=== PATIENT | male | born 1960 | race Caucasian/White ===

== ENCOUNTER 2018-02-28 15:13 | Observation (INO) | payer OTHER, SELFPAY ==
[2018-02-28 15:14] VITALS: BP 155/82; PULSE 50; RESP 18; TEMP 36.8; O2SAT 97; BMI 28.1
--- NOTE | 2018-02-28 15:40 | EKG12_ITS ---
Test Reason : BACK PAIN Blood Pressure : / mmHG Vent. Rate : 052 BPM Atrial Rate : 052 BPM P-R Int : 144 ms QRS Dur : 086 ms QT Int : 418 ms P-R-T Axes : 057 039 060 degrees QTc Int : 388 ms Sinus bradycardia Otherwise normal ECG Confirmed by VALENTINA MARRERO, JOHN ([id number]), health editor SHEELA NUNES ([id number] on 03/03/2018 9:02:24 AM Referred By: Confirmed By:JOHN MONTGOMERY MD
--- NOTE | 2018-02-28 15:40 | CT_ITS ---
STUDY: CT ABDOMEN AND PELVIS WITH CONTRAST REASON FOR EXAM: Male, 58 years old. Back pain. History of bladder cancer. RADIATION DOSAGE (If Supplied By Facility): CTDIvol = ( 17.96 ) mGy, DLP = ( 1462.27 ) mGycm TECHNIQUE: Transaxial images were obtained from the dome of the diaphragm to the symphysis pubis without oral contrast. 100 ml of Isovue 370 contrast was administered. Sagittal and coronal images were reconstructed. Individualized dose optimization techniques were used for this CT. COMPARISON: None. FINDINGS: Minimal chronic versus posterior atelectatic changes of the right lung. Less than 2 mm pleural-based nodule of the left lower lobe, image 10 series 3. 3 mm pleural-based nodule of the left lower lobe, image 14 series 3. Small calcific or enhancing densities juxtapose the gallbladder wall. Small amount of pericholecystic fluid. Nondistended common bile duct. There are multiple benign calcified granulomata of the spleen. Normal pancreas. Normal bilateral adrenal glands. Normal right kidney. Normal left kidney. Food filled stomach. Normal small intestine. Minimal diverticulosis of the colon without evidence of acute diverticulitis The appendix is visualized and appears normal. Normal abdominal aorta. Normal inferior vena cava. Normal retroperitoneum. Normal urinary bladder. Minimal fatty umbilical hernia. Benign supra-acetabular fracture of the left hip. Otherwise normal osseous structures without osteolytic or blastic bone lesions. CT/Abdomen/Pelvis W IV Cont ONLY IMPRESSION: Negative for acute bowel related findings. Negative for obstruction, perforation or inflammatory bowel changes. Minimal diverticulosis without acute diverticulitis. Normal appendix is identified. Normal kidneys bilaterally without hydronephrosis or stones. Unremarkable noncontrast urinary bladder. Nondistended appearing gallbladder without wall thickening. There is evidence of gallstones or enhancing polyps. Small amount of pericholecystic fluid. Negative for biliary ductal dilatation. Essentially normal skeletal structures without osteolytic or blastic bone lesions. 2 mm and 3 mm noncalcified pleural-based nodules of the left lower lobe likely to be pulmonary lymph nodes. As the patient has history of cancer, follow-up may be in order in one year's time. Electronically Signed: Leslie Thompson MD at 17:27 EDT , Service support ,
--- NOTE | 2018-02-28 15:41 | CT_ITS ---
STUDY: CTA CHEST REASON FOR EXAM: Male, 58 years old. Back pain. History of bladder cancer. RADIATION DOSAGE (If Supplied By Facility): CTDIvol = ( 17.96 ) mGy, DLP = ( 1462.27 ) mGycm TECHNIQUE: The examination was performed with the intravenous administration of 100 ml of Isovue 370 contrast material. Post-processing of the angiographic images was performed, with multiplanar reformation and 3D reconstruction. Individualized dose optimization techniques were used for this CT. COMPARISON: None. FINDINGS: Normal enhancement of the main pulmonary artery and right and left pulmonary arteries. Normal enhancement of the bilateral peripheral pulmonary arteries. There is no demonstrated pulmonary embolism. Minimal plaque and elongation of the thoracic aorta without aneurysm. There is no demonstrated aortic dissection. Normal heart and pericardium. Negative for coronary calcification. Calcified left hilar and subcarinal lymph nodes. Normal hilar regions. Normal visualized trachea and bronchi. Minimal bibasilar atelectatic versus chronic changes. Otherwise negative for consolidation or focal substantial atelectasis. Negative for pleural effusion. Multiple calcified granuloma. 3 x 2 mm probably calcified nodule of the anterior right upper lobe, image 166 series 2. 3 mm noncalcified nodule of the right upper lobe, image 114 series 2. 4 mm noncalcified nodule of the anterior right upper lobe, image 113 series 2. 4 mm pleural-based noncalcified nodule of the lingula, image 90 series 2. 3 mm pleural-based nodule of the lateral left lower lobe, image 47 series 2. 2 x 1 mm pleural-based nodule of the posterior lateral left lower lobe, image 59 series 2. Normal chest wall structures. Normal osseous structures. CT/CTA Chest W/WO Contrast IMPRESSION: Negative for pulmonary embolus. Minimal atherosclerotic changes of the thoracic aorta without aneurysm or dissection. Normal cardiac size. Negative for pericardial effusion or coronary calcification. Minimal bibasilar atelectatic changes without other consolidation or pleural effusion. Calcified granuloma, calcified hilar and mediastinal lymph nodes. There are numerous noncalcified nodules as listed above. The larger nodules are 4 mm in size. Ordinarily, nodules of this size would require no specific follow-up; however, in light of the history of malignancy, twelve-month follow-up is recommended. Electronically Signed: Leslie Thompson MD at 18:19 EDT , Service support ,
--- NOTE | 2018-02-28 15:42 | ED.VISSUMM ---
- ER Visit Summary Date of Service: 02/28/18 Chief Complaint: Back pain History of Present Illness: The patient is a 58 M presenting with back pain which began around noon today. It gradually worsened. He states yesterday he did a lot of heavy labor and yard work. He has pain to his mid back and upper abdomen. He denies chest pain or shortness of breath. Denies dizziness or syncope. He has nausea with no vomiting. Denies other complaints. Physical Examination: Vitals are stable. Patient is afebrile. Alert no acute distress. HEENT exam is unremarkable. Neck is supple. Lungs are clear and equal bilaterally. Heart is regular rate and rhythm. Abdomen is soft right upper quadrant tenderness with no rebound or guarding Back: nontender Extremities are unremarkable. Skin is warm and dry. No focal neurologic deficit. Normal strength and sensation Remainder of exam is unremarkable. Emergency Department Course and Treatment: Patient is given IV fluids, morphine, Zofran. CTA chest negative for pulmonary embolus. Minimal atherosclerotic changes of the thoracic aorta without aneurysm or dissection. Normal cardiac size. Negative for pericardial effusion or coronary calcification. Minimal bibasilar atelectatic changes without other consolidation or pleural effusion. Calcified granuloma, calcified hilar and mediastinal lymph nodes. There are numerous noncalcified nodules as listed above. The larger nodules are 4 mm in size. Ordinarily, nodules of this size would require no specific follow-up; however, in light of the history of malignancy, twelve-month follow-up is recommended. CT abdomen negative for acute bowel related findings. Negative for obstruction, perforation or inflammatory bowel changes. Minimal diverticulosis without acute diverticulitis. Normal appendix is identified. Normal kidneys bilaterally without hydronephrosis or stones. Unremarkable noncontrast urinary bladder. Nondistended appearing gallbladder without wall thickening. Small amount of pericholecystic fluid. Negative for biliary ductal dilatation. Essentially normal skeletal structures without osteolytic or blastic bone lesions. 2 mm and 3 mm noncalcified pleural-based nodules of the left lower lobe likely to be pulmonary lymph nodes. As the patient has history of cancer, follow-up may be in order in one year's time. CBC normal except white count 11.5. Chemistry normal except for glucose 170. Liver lipase are normal. Urinalysis unremarkable. Troponin is negative. Gallbladder ultrasound fatty liver. Polyposis or adenomyomatosis of the gallbladder. Minimal pericholecystic fluid. Negative for stones. Nondistended common bile duct. Normal pancreas and right kidney. Findings were discussed with Dr. Lambert who evaluated the patient in the ED. Because of his white count of 11.5, pericholecystic fluid and right upper quadrant abdominal pain, patient will be admitted for acute cholecystitis. Disposition: Admission Impression: Acute cholecystitis This note was generated with Teik[employer] dictation software. It may contain incorrect words, spelling, and punctuation that were not noted in review of the chart prior to signing ED Disposition - Plan for ED Patient: Disposition: Acute Care Hospital [facility] Chief Complaint: Back
--- NOTE | 2018-02-28 15:47 | NURSING ---
NO OLD EKGS
[2018-02-28 15:57] LABS: Absolute Neutrophil Count 8.6 X10^3/uL (2.0-7.7); Basophil# 0.03 X10^3/uL; Basophil% 0.3 % (0-1); Eosinophil# 0.21 X10^3/uL; Eosinophils% 1.8 % (0-5); Hematocrit 41.7 % (40-54); Lymphocyte % 15.7 % (19-41); Mean Corp Hgb Conc 31.2 g/gl (32-36); Mean Corpuscular Hgb 26.4 pg (27.0-32.0); Mean Corpuscular Volume 84.6 fL (80-94); Mean Platelet Vol. 9.2 fl (6.2-12.0); Monocyte# 0.84 X10^3/uL; Monocyte% 7.3 % (0-10); Neutrophil # 8.57 X10^3/uL (2.7-7.7); Neutrophil % 74.7 % (47-70); Platelet Count 272 K/mm3 (150-450); RBC Distribution Width SD 43.2 fl (35.1-43.9); Red Blood Count 4.93 M/mm3 (4.6-6.2); White Blood Count 11.5 K/mm3 (4.4-11.0)
[2018-02-28] MEDS: 0.9% Normal Saline 1,000 ML 1000 ML IV (15:57)
[2018-02-28 15:58] LABS: POSITIVE COUNT NO; POSITIVE DIFFERENTIAL NO; POSITIVE MORPHOLOGY NO
[2018-02-28 16:23] LABS: AST(SGOT) 5 U/L (15-37); Alanine Aminotransfer ALT/SGPT 26 U/L (16-61); Albumin, Serum 3.5 g/dL (3.2-5.0); Alkaline Phosphatase 38 U/L (45-117); Anion Gap 6 (5-15); BUN 17 mg/dL (7-18); Chloride 105 mmol/L (98-107); Creatinine, Serum 0.74 mg/dL (0.70-1.30); EST Glomerular Filtration Rate 115 mL/min (>60); Est Glom Filt Rate - Afr Amer 139 mL/min (>60); Estimated Creatinine Clearance 103.99 ml/min; Globulin 3.1 g/dL (2.2-4.2); Glucose 170 mg/dL (74-106); Lipase 158 U/L (73-393); Potassium 3.9 mmol/L (3.5-5.1); Protein, Total 6.6 g/dL (6.4-8.2); Sodium Level 140 mmol/L (136-145)
--- NOTE | 2018-02-28 17:31 | US_ITS ---
STUDY: ABDOMINAL ULTRASOUND - RIGHT UPPER QUADRANT REASON FOR VISIT: Male, 58 years old. Abdominal pain TECHNIQUE: Ultrasound evaluation of the right upper quadrant was performed with real-time and static christina-scale imaging. TECHNICAL QUALITY: Adequate. COMPARISON: Abdomen and pelvic CT exam of February 28, 2018 FINDINGS: Liver: The liver measures 17 cm. There is increased echogenicity consistent with fatty infiltration. The bile ducts are within normal limits. There is hepatic color flow. The direction of portal flow is hepatopetal. There is no demonstrated mass lesion. Gallbladder: Normal distended gallbladder. The gallbladder wall thickness is variable. There are numerous nonmobile nonshadowing filling defects juxtapose the gallbladder wall throughout the gallbladder. There is a negative sonographic Srinivasan's sign. Slight pericholecystic fluid. There are no gallstones. Common Bile Duct (C.B.D.): The common bile duct measures 5 mm. Pancreas: Normal size of the head, body and tail of the pancreas. There is normal echogenicity of the pancreas. There is no demonstrated pancreatic mass or cyst. Right Kidney: Normal size of the right kidney. The right kidney measures 11.8 x 5.8 x 5.6 cm. Normal renal cortex. The right cortex measures 1.7 cm. There is no demonstrated renal mass or cyst. There is no right hydronephrosis. US/Gallbladder IMPRESSION: Fatty liver. Polyposis or adenomyomatosis of the gallbladder. Minimal pericholecystic fluid. Negative for stones. Nondistended common bile duct. Normal pancreas and right kidney. Electronically Signed: Leslie Thompson MD at 20:20 EDT , Service support ,
[2018-02-28 17:36] LABS: Bacteria 0 SEEN /hpf (None Seen); Mucous, Urine 0 SEEN /hpf (<or=2+); Squamous Epithelial Cells - UA 0 SEEN /hpf (0-5); White Blood Cells 0 SEEN /hpf (0-5)
[2018-02-28 17:37] LABS: Color, Urine Yellow (Yellow); Glucose, Dipstick 50 mg/dl (Normal); Ketone-Dipstick Negative (Negative); Leukocyte Esterase-Dipstick Negative /ul (Negative); Nitrite-Dipstick Negative (Negative); Occult Blood-Urine Negative /ul (Negative); Protein-Dipstick 15 mg/dl (Negative); Urine Bilirubin Dipstick Negative (Negative); Urine Clarity Clear (Clear); Urine Urobilinogen Normal (Normal)
[2018-02-28 17:52] LABS: Red Blood Cells-Urine 0-5 SEEN /hpf (0-5)
[2018-02-28 21:34] VITALS: BP 147/87; PULSE 60; RESP 15; O2SAT 95
--- NOTE | 2018-02-28 21:34 | PCM.HP.STD ---
Problem List (1) Acalculous cholecystitis Status: Acute (2) Adenomyoma of gallbladder Status: Acute History of Present Illness Date of Admission: 02/28/18 The patient is a 58 year old M who reports that he began having upper abdominal pain and back pain this afternoon. He did not have vomiting but he did have nausea. He also said he felt chills. He has never had issues like this before. He said he just did not feel well. He currently says the pain is much better. The pain was in the right upper quadrant and mid back. Past Medical History Allergies No Known Allergies Allergy (Verified 02/28/18 15:15) Home Medications: Ambulatory Orders Medication Instructions Recorded NK [NK] 02/28/18 Surgical History: - - Transurethral bladder resection for bladder cancer Lives: Spouse/ Significant Other Smoking Status: Never smoker Alcohol: None Drugs: None - *Family History Maternal History Items: No pertinent history Review of Systems Constitutional: Reports: Anorexia, Chills. Denies: Fever HEENT: Denies: Difficulty Swallowing Cardiovascular: Denies: Chest Pain Respiratory: Denies: Cough, Shortness of Breath Gastrointestinal: Reports: Abdominal Pain, Nausea. Denies: Constipation, Diarrhea, Hematemesis, Vomiting Genitourinary: Denies: Dysuria Musculoskeletal: Reports: Back Pain Skin: Denies: Dryness, Jaundice Neurological: Denies: Balance problems Endocrine: Denies: Change in Body Habitus Hematologic/ Lymphatic: Denies: Adenopathy, Anemia VTE Information - Inpt Only VTE Present on Admission: No VTE Mechan Device Prophylaxis: SCD's Patient Problems: Active and Suspected Problems Acalculous cholecystitis (Acute) Adenomyoma of gallbladder (Acute) - Physical Exam General: Alert, Oriented x3, Cooperative, No apparent distress HEENT: Atraumatic, PERRLA, EOMI, Normocephalic Oral: Moist Mucosa Neck: No JVD Lungs: Normal air movement Cardiovascular: Regular rate Abdomen: Soft, Non Tender, Non-Distended Extremities: No clubbing Skin: No rashes Musculoskeletal: No Tenderness to Palpation of Joints or Extremities Neurological: Cranial nerves II-XII grossly intact Psych/Mental Status: Normal Affect Vital Signs Temp Pulse Resp BP Pulse Ox 98.3 F 60 15 147/87 H 95 02/28/18 15:14 02/28/18 21:34 02/28/18 21:34 02/28/18 21:34 02/28/18 21:34 Oxygen Delivery Method Room Air Weight: 185 lb Body Mass Index (BMI) 28.1 Laboratory Tests Past 24 Hrs 02/28/18 02/28/18 02/28/18 15:50 15:50 17:25 WBC 11.5 H RBC 4.93 Hgb 13.0 Hct 41.7 MCV 84.6 MCH 26.4 L MCHC 31.2 L RDW 14.0 RDW Differential 43.2 Plt Count 272 MPV 9.2 Immature Gran % (Auto) 0.200 Neut % (Auto) 74.7 H Lymph % (Auto) 15.7 L [place] % (Auto) 7.3 Eos % (Auto) 1.8 Baso % (Auto) 0.3 Absolute Neuts (auto) 8.6 H Absolute Lymphs (auto) 1.80 Total Counted Not Reportable Sodium 140 Potassium 3.9 Chloride 105 Carbon Dioxide 29.0 Anion Gap 6 BUN 17 Creatinine 0.74 Estim Creat Clear Calc 103.99 Est GFR (MDRD) Af Amer 139 Est GFR (MDRD) Non-Af 115 BUN/Creatinine Ratio 23.0 H Glucose 170 H Calcium 8.0 L Total Bilirubin 0.30 Direct Bilirubin 0.10 AST 5 L ALT 26 Alkaline Phosphatase 38 L Troponin I < 0.015 Total Protein 6.6 Albumin 3.5 Globulin 3.1 Lipase 158 Urine Color Yellow Urine Clarity Clear Urine pH 7.0 Ur Specific [place] 1.010 Urine Protein 15 H Urine Glucose (UA) 50 H Urine Ketones Negative Urine Occult Blood Negative Urine Nitrite Negative Urine Bilirubin Negative Urine Urobilinogen Normal Ur Leukocyte Esterase Negative Urine RBC 0-5 SEEN Urine WBC 0 SEEN Ur Squamous Epith Cells 0 SEEN Urine Bacteria 0 SEEN Urine Mucus 0 SEEN Clinical Impression(s) from Imaging Studies Abdomen/Pelvis CT 02/28/18 15:40 IMPRESSION: Negative for acute bowel related findings. Negative for obstruction, perforation or inflammatory bowel changes. Minimal diverticulosis without acute diverticulitis. Normal appendix is identified. Normal kidneys bilaterally without hydronephrosis or stones. Unremarkable noncontrast urinary bladder. Nondistended appearing gallbladder without wall thickening. There is evidence of gallstones or enhancing polyps. Small amount of pericholecystic fluid. Negative for biliary ductal dilatation. Essentially normal skeletal structures without osteolytic or blastic bone lesions. 2 mm and 3 mm noncalcified pleural-based nodules of the left lower lobe likely to be pulmonary lymph nodes. As the patient has history of cancer, follow-up may be in order in one year's time. Electronically Signed: Leslie Thompson MD at 17:27 EDT , Service support , Chest CTA 02/28/18 15:41 IMPRESSION: Negative for pulmonary embolus. Minimal atherosclerotic changes of the thoracic aorta without aneurysm or dissection. Normal cardiac size. Negative for pericardial effusion or coronary calcification. Minimal bibasilar atelectatic changes without other consolidation or pleural effusion. Calcified granuloma, calcified hilar and mediastinal lymph nodes. There are numerous noncalcified nodules as listed above. The larger nodules are 4 mm in size. Ordinarily, nodules of this size would require no specific follow-up; however, in light of the history of malignancy, twelve-month follow-up is recommended. Electronically Signed: Leslie Thompson MD at 18:19 EDT , Service support , Gallbladder Ultrasound 02/28/18 17:31 IMPRESSION: Fatty liver. Polyposis or adenomyomatosis of the gallbladder. Minimal pericholecystic fluid. Negative for stones. Nondistended common bile duct. Normal pancreas and right kidney. Electronically Signed: Leslie Thompson MD at 20:20 EDT , Service support , Assessment/Plan All Active Problems Acalculous cholecystitis (Acute) Adenomyoma of gallbladder (Acute) 58-year-old male with possible acute cholecystitis 1. I reviewed the patient's CT scan as well as ultrasound. The patient has possible adenomyomatosis of the gallbladder. The patient has several polypoid filling defects in the gallbladder lumen which are fixed to the gallbladder wall. The patient also has thickening of the gallbladder wall with pericholecystic fluid. Patient also has an elevated white count with left shift. The patient also had pericholecystic fluid on the CT scan. Given all these things I am suspicious that the patient is having acalculous cholecystitis due to the adenomyomatosis of the gallbladder. 2. The patient is very hesitant about having any surgery. I did recommend that he have a cholecystectomy due to these polyps of the gallbladder especially in light of the acute nature of his symptoms. I believe he has a calculus cholecystitis. I informed him that his cholecystitis would likely improve with only antibiotics but I would still recommend elective cholecystectomy due to the multiple polyps and the fact that it is symptomatic. I also explained that his acute cholecystitis may return at a later date if he did not have his gallbladder removed. The patient was also hesitant about being admitted but I strongly encouraged him to be observed and rechecked in the morning. I did offer him a HIDA scan in the morning if he would like and if the HIDA was negative he could go home on oral antibiotics and return if he elected for elective gallbladder removal. 3. At this time I will admit him and keep him n.p.o. and start him on antibiotics. I will recheck CBC in the morning and check physical exam. At this time he is having no upper abdominal pain so I believe the gallbladder is draining but it could also be the fact that he has not eaten in over 8 hours. 4. I discussed the procedure in detail with the patient. I discussed the risks, benefits, and alternatives of the procedure. I discussed the risks including but not limited to bleeding, infection, injury to surrounding organs such as the liver, bile duct, bowels. I did discuss the possibility of having to convert to an open procedure as well as the possibility that if any injuries occurred this may necessitate further surgery at a tertiary care center. Israel Lambert MD Pager: [facility] [address] [place] [address] [address] [place] [address] Office:
--- NOTE | 2018-02-28 21:40 | HP.PCM_ITS ---
Problem List (1) Acalculous cholecystitis Status: Acute (2) Adenomyoma of gallbladder Status: Acute History of Present Illness Date of Admission: 02/28/18 The patient is a 58 year old M who reports that he began having upper abdominal pain and back pain this afternoon. He did not have vomiting but he did have nausea. He also said he felt chills. He has never had issues like this before. He said he just did not feel well. He currently says the pain is much better. The pain was in the right upper quadrant and mid back. Past Medical History Allergies No Known Allergies Allergy (Verified 02/28/18 15:15) Home Medications: Ambulatory Orders Medication Instructions Recorded NK [NK] 02/28/18 Surgical History: - - Transurethral bladder resection for bladder cancer Lives: Spouse/ Significant Other Smoking Status: Never smoker Alcohol: None Drugs: None - *Family History Maternal History Items: No pertinent history Review of Systems Constitutional: Reports: Anorexia, Chills. Denies: Fever HEENT: Denies: Difficulty Swallowing Cardiovascular: Denies: Chest Pain Respiratory: Denies: Cough, Shortness of Breath Gastrointestinal: Reports: Abdominal Pain, Nausea. Denies: Constipation, Diarrhea, Hematemesis, Vomiting Genitourinary: Denies: Dysuria Musculoskeletal: Reports: Back Pain Skin: Denies: Dryness, Jaundice Neurological: Denies: Balance problems Endocrine: Denies: Change in Body Habitus Hematologic/ Lymphatic: Denies: Adenopathy, Anemia VTE Information - Inpt Only VTE Present on Admission: No VTE Mechan Device Prophylaxis: SCD's Patient Problems: Active and Suspected Problems Acalculous cholecystitis (Acute) Adenomyoma of gallbladder (Acute) - Physical Exam General: Alert, Oriented x3, Cooperative, No apparent distress HEENT: Atraumatic, PERRLA, EOMI, Normocephalic Oral: Moist Mucosa Neck: No JVD Lungs: Normal air movement Cardiovascular: Regular rate Abdomen: Soft, Non Tender, Non-Distended Extremities: No clubbing Skin: No rashes Musculoskeletal: No Tenderness to Palpation of Joints or Extremities Neurological: Cranial nerves II-XII grossly intact Psych/Mental Status: Normal Affect Vital Signs Temp Pulse Resp BP Pulse Ox 98.3 F 60 15 147/87 H 95 02/28/18 15:14 02/28/18 21:34 02/28/18 21:34 02/28/18 21:34 02/28/18 21:34 Oxygen Delivery Method Room Air Weight: 185 lb Body Mass Index (BMI) 28.1 Laboratory Tests Past 24 Hrs 02/28/18 02/28/18 02/28/18 15:50 15:50 17:25 WBC 11.5 H RBC 4.93 Hgb 13.0 Hct 41.7 MCV 84.6 MCH 26.4 L MCHC 31.2 L RDW 14.0 RDW Differential 43.2 Plt Count 272 MPV 9.2 Immature Gran % (Auto) 0.200 Neut % (Auto) 74.7 H Lymph % (Auto) 15.7 L [place] % (Auto) 7.3 Eos % (Auto) 1.8 Baso % (Auto) 0.3 Absolute Neuts (auto) 8.6 H Absolute Lymphs (auto) 1.80 Total Counted Not Reportable Sodium 140 Potassium 3.9 Chloride 105 Carbon Dioxide 29.0 Anion Gap 6 BUN 17 Creatinine 0.74 Estim Creat Clear Calc 103.99 Est GFR (MDRD) Af Amer 139 Est GFR (MDRD) Non-Af 115 BUN/Creatinine Ratio 23.0 H Glucose 170 H Calcium 8.0 L Total Bilirubin 0.30 Direct Bilirubin 0.10 AST 5 L ALT 26 Alkaline Phosphatase 38 L Troponin I < 0.015 Total Protein 6.6 Albumin 3.5 Globulin 3.1 Lipase 158 Urine Color Yellow Urine Clarity Clear Urine pH 7.0 Ur Specific [place] 1.010 Urine Protein 15 H Urine Glucose (UA) 50 H Urine Ketones Negative Urine Occult Blood Negative Urine Nitrite Negative Urine Bilirubin Negative Urine Urobilinogen Normal Ur Leukocyte Esterase Negative Urine RBC 0-5 SEEN Urine WBC 0 SEEN Ur Squamous Epith Cells 0 SEEN Urine Bacteria 0 SEEN Urine Mucus 0 SEEN Clinical Impression(s) from Imaging Studies Abdomen/Pelvis CT 02/28/18 15:40 IMPRESSION: Negative for acute bowel related findings. Negative for obstruction, perforation or inflammatory bowel changes. Minimal diverticulosis without acute diverticulitis. Normal appendix is identified. Normal kidneys bilaterally without hydronephrosis or stones. Unremarkable noncontrast urinary bladder. Nondistended appearing gallbladder without wall thickening. There is evidence of gallstones or enhancing polyps. Small amount of pericholecystic fluid. Negative for biliary ductal dilatation. Essentially normal skeletal structures without osteolytic or blastic bone lesions. 2 mm and 3 mm noncalcified pleural-based nodules of the left lower lobe likely to be pulmonary lymph nodes. As the patient has history of cancer, follow-up may be in order in one year's time. Electronically Signed: Leslie Thompson MD at 17:27 EDT , Service support , Chest CTA 02/28/18 15:41 IMPRESSION: Negative for pulmonary embolus. Minimal atherosclerotic changes of the thoracic aorta without aneurysm or dissection. Normal cardiac size. Negative for pericardial effusion or coronary calcification. Minimal bibasilar atelectatic changes without other consolidation or pleural effusion. Calcified granuloma, calcified hilar and mediastinal lymph nodes. There are numerous noncalcified nodules as listed above. The larger nodules are 4 mm in size. Ordinarily, nodules of this size would require no specific follow-up; however, in light of the history of malignancy, twelve-month follow-up is recommended. Electronically Signed: Leslie Thompson MD at 18:19 EDT , Service support , Gallbladder Ultrasound 02/28/18 17:31 IMPRESSION: Fatty liver. Polyposis or adenomyomatosis of the gallbladder. Minimal pericholecystic fluid. Negative for stones. Nondistended common bile duct. Normal pancreas and right kidney. Electronically Signed: Leslie Thompson MD at 20:20 EDT , Service support , Assessment/Plan All Active Problems Acalculous cholecystitis (Acute) Adenomyoma of gallbladder (Acute) 58-year-old male with possible acute cholecystitis 1. I reviewed the patient's CT scan as well as ultrasound. The patient has possible adenomyomatosis of the gallbladder. The patient has several polypoid filling defects in the gallbladder lumen which are fixed to the gallbladder wall. The patient also has thickening of the gallbladder wall with pericholecystic fluid. Patient also has an elevated white count with left shift. The patient also had pericholecystic fluid on the CT scan. Given all these things I am suspicious that the patient is having acalculous cholecystitis due to the adenomyomatosis of the gallbladder. 2. The patient is very hesitant about having any surgery. I did recommend that he have a cholecystectomy due to these polyps of the gallbladder especially in light of the acute nature of his symptoms. I believe he has a calculus cholecystitis. I informed him that his cholecystitis would likely improve with only antibiotics but I would still recommend elective cholecystectomy due to the multiple polyps and the fact that it is symptomatic. I also explained that his acute cholecystitis may return at a later date if he did not have his gallbladder removed. The patient was also hesitant about being admitted but I strongly encouraged him to be observed and rechecked in the morning. I did offer him a HIDA scan in the morning if he would like and if the HIDA was negative he could go home on oral antibiotics and return if he elected for elective gallbladder removal. 3. At this time I will admit him and keep him n.p.o. and start him on antibiotics. I will recheck CBC in the morning and check physical exam. At this time he is having no upper abdominal pain so I believe the gallbladder is draining but it could also be the fact that he has not eaten in over 8 hours. 4. I discussed the procedure in detail with the patient. I discussed the risks , benefits, and alternatives of the procedure. I discussed the risks including but not limited to bleeding, infection, injury to surrounding organs such as the liver, bile duct, bowels. I did discuss the possibility of having to convert to an open procedure as well as the possibility that if any injuries occurred this may necessitate further surgery at a tertiary care center. Israel Lambert MD Pager: [facility] [address] [place] [address] [address] [place] [address] Office:
[2018-02-28 22:42] VITALS: BMI 28.3
[2018-02-28 22:43] VITALS: BP 130/66; PULSE 57; RESP 16; TEMP 37.1; O2SAT 97
[2018-02-28 22:53] VITALS: BMI 28.4
[2018-02-28 23:03] VITALS: BMI 28.3
[2018-02-28] MEDS: 0.9% Normal Saline 1,000 ML 100 ML IV (23:17)
[2018-03-01] VITALS (9 sets, daily range): BP systolic 99–139; BP diastolic 55–96; PULSE 53–67; RESP 16–18; TEMP 36.4–37.3; O2SAT 94–100; BMI 28.3
[2018-03-01 06:24] LABS: Absolute Lymphocyte Count 2.02 X10^3/ul (0.83-4.51); Absolute Neutrophil Count 8.5 X10^3/uL (2.0-7.7); Basophil# 0.05 X10^3/uL; Basophil% 0.4 % (0-1); Eosinophil# 0.25 X10^3/uL; Eosinophils% 2.1 % (0-5); Hematocrit 39.4 % (40-54); Hemoglobin 12.8 g/dl (13.0-16.5); Lymphocyte # 2.02 X10^3/ul (4.0); Lymphocyte % 16.9 % (19-41); Mean Corp Hgb Conc 32.5 g/gl (32-36); Mean Corpuscular Hgb 27.3 pg (27.0-32.0); Mean Platelet Vol. 9.8 fl (6.2-12.0); Monocyte# 1.07 X10^3/uL; Neutrophil # 8.53 X10^3/uL (2.7-7.7); Neutrophil % 71.3 % (47-70); Platelet Count 288 K/mm3 (150-450); RBC Distribution Width SD 42.8 fl (35.1-43.9); Red Blood Count 4.69 M/mm3 (4.6-6.2)
[2018-03-01 06:35] LABS: POSITIVE COUNT NO; POSITIVE DIFFERENTIAL NO; POSITIVE MORPHOLOGY NO
[2018-03-01 06:36] LABS: Anion Gap 8 (5-15); BUN 9 mg/dL (7-18); BUN/Creat Ratio 12.2 RATIO (10-20); Calcium,Total 7.9 mg/dL (8.5-10.1); Chloride 110 mmol/L (98-107); Creatinine, Serum 0.74 mg/dL (0.70-1.30); EST Glomerular Filtration Rate 116 mL/min (>60); Est Glom Filt Rate - Afr Amer 140 mL/min (>60); Estimated Creatinine Clearance 103.99 ml/min; Glucose 104 mg/dL (74-106); Potassium 3.7 mmol/L (3.5-5.1); Sodium Level 144 mmol/L (136-145)
--- NOTE | 2018-03-01 08:09 | PCM.PN.SRG ---
Patient Problems: Active and Suspected Problems Acalculous cholecystitis (Acute) Adenomyoma of gallbladder (Acute) Subjective: Patient continues to have abdominal pain and back pain this morning. - Physical Exam Lungs: Normal air movement Cardiovascular: Regular rate, Regular Rhythm Abdomen: Soft, Non-Distended, Tender - Tender in the right upper quadrant with no guarding Vital Signs Temp Pulse Resp BP Pulse Ox 98.2 F 60 16 128/72 H 94 03/01/18 07:58 03/01/18 07:58 03/01/18 07:58 03/01/18 07:58 03/01/18 07:58 Oxygen Delivery Method Room Air Weight: 186 lb 8.177 oz Body Mass Index (BMI) 28.3 Intake and Output for Last 24 Hours 02/27/18 02/28/18 03/01/18 23:59 23:59 23:59 Intake Total 334 / 334 Balance 334 / 334 Laboratory Tests Past 24 Hrs 03/01/18 03/01/18 05:52 05:52 WBC 12.0 H RBC 4.69 Hgb 12.8 L Hct 39.4 L MCV 84.0 MCH 27.3 MCHC 32.5 RDW 14.0 RDW Differential 42.8 Plt Count 288 MPV 9.8 Immature Gran % (Auto) 0.300 Neut % (Auto) 71.3 H Lymph % (Auto) 16.9 L [place] % (Auto) 9.0 Eos % (Auto) 2.1 Baso % (Auto) 0.4 Absolute Neuts (auto) 8.5 H Absolute Lymphs (auto) 2.02 Total Counted Not Reportable Sodium 144 Potassium 3.7 Chloride 110 H Carbon Dioxide 26.0 Anion Gap 8 BUN 9 Creatinine 0.74 Estim Creat Clear Calc 103.99 Est GFR (MDRD) Af Amer 140 Est GFR (MDRD) Non-Af 116 BUN/Creatinine Ratio 12.2 Glucose 104 Calcium 7.9 L Medical Necessity - Tobacco Use Smoking Status: Never smoker Assessment/Plan All Active Problems Acalculous cholecystitis (Acute) Adenomyoma of gallbladder (Acute) 58-year-old male with likely acute cholecystitis 1. I started the patient on antibiotics less than his white count increased. This morning he is complaining of the same back pain he had last night and when I palpated his right upper quadrant he did have tenderness. I still recommend laparoscopic cholecystectomy and the patient agrees. 2. Plan for laparoscopic cholecystectomy this afternoon. Continue n.p.o. and IV antibiotics. IV fluids. Israel Lambert MD Pager: [facility] [address] [place] [address] [address] [place] [address] Office:
[2018-03-01] MEDS: 0.9% Normal Saline 1,000 ML 100 ML IV ×2 (10:40→19:48)
--- NOTE | 2018-03-01 11:05 | GALL_PTH ---
PATIENT: FRANCISCO YEE LOC: MS3 U#:[id number] AGE/SX: 58/M ROOM: GA317 RE02/28/[address]: Dr. Israel Lambert MD : 1960 BED: 1 DIS: 03/02/2018 SPEC #: [id number] RECD: 03/01/18 18:53 STATUS: MADDI MCKENZIE #: [id number] MOSHE: 03/01/18 11:[address]: Israel Lambert DEPT: SURGICAL PATHOLOGY RECD BY: Chauncey Garcia ENTERED: 03/02/18 09:55 SP TYPE: FAUZIA HERNANDEZ DR: Dr. Aung Hernandez DO Tissues: Gallbladder, NOS Procedures: Surgery Specimen Level III HEADER OPERATION: Laparoscopic cholecystectomy with IOC PRE-OP DIAGNOSIS: Acalculous cholecystitis TISSUE SUBMITTED: Gallbladder MICROSCOPIC DIAGNOSIS Gallbladder: Chronic cholecystitis, cholelithiasis and cholesterolosis. See comment. MARYAM:leidy 03/03/18 COMMENT Grossly identified polyps are consistent with cholesterolosis. MICROSCOPIC DESCRIPTION Slides are reviewed. GROSS DESCRIPTION Received is one container labeled with the patient's name and designated gallbladder. The specimen consists of a gallbladder measuring 12 cm in length and up to 3.5 cm in diameter. The external surface is pink-jaeger, smooth and glistening for the most part. Focally it is granular, hemorrhagic and contains cautery artifact. The gallbladder contains green-yellow mucoid bile and a large amount of sludge material. Multiple stones are also noted black to yellowish mulberry type measuring 0.1 to 0.7 cm in greatest dimension. The gallbladder wall also shows multiple variable sized yellowish polyps measuring 0.1 to 0.3 cm in greatest dimension. The gallbladder wall measures up to 0.2 cm in thickness. The polyps are consistent with cholesterolosis. Gluing Machine Operator Automatic sections from the gallbladder and the cystic duct are submitted in one cassette. / SJ:leidy 03/02/18 TC:3 [facility]: [id number]
--- NOTE | 2018-03-01 18:10 | RAD_ITS ---
CLINICAL HISTORY: Male, 58 years old. Laparoscopic cholecystectomy for acute cholecystitis. PROCEDURE: CHOLANGIOGRAM - intraoperative FLUOROSCOPY TIME (if supplied): ( ) minutes/seconds TECHNIQUE: A single intraoperative image 1 presented for interpretation. COMPARISON: Ultrasound, February 28, 2018. CT of the head and pelvis, February 28, 2018. FINDINGS: The image demonstrates cannulization of the cystic duct stump. Contrast fills the cystic duct, common bile duct, common hepatic duct and intrahepatic ducts. There is no evidence of dilatation stricture or filling defect. There is free spillage of contrast into the duodenum. Please refer to the operative report for further details RAD/Cholangiogram/ O R,Initial IMPRESSION: Intraoperative cholangiogram. Electronically Signed: Tevin Enrique DO at 20:14 EDT Tel [phone], Service support ,
[2018-03-01] MEDS: Bupiv/Epi 0.5% Mpf 30 ML Vial (18:30)
--- NOTE | 2018-03-01 19:08 | PCM.OPRPT ---
Problem List (1) Acalculous cholecystitis Status: Acute (2) Adenomyoma of gallbladder Status: Acute Report of Operation Date of Procedure: 03/01/18 Pre-Operative Diagnosis: Acute cholecystitis Post-Operative Diagnosis: Acute cholecystitis Surgery/Procedure Performed:: Laparoscopic cholecystectomy with cholangiogram Specimen's removed: Gallbladder Description of Procedure: After obtaining informed consent patient was brought back to the operating room. General anesthesia was induced. The abdomen was prepped and draped in usual sterile fashion. A small midline incision was made superior to the umbilicus and deepened to the level of fascia. The fascia was elevated and incised. Next the peritoneum was elevated and incised in the same fashion. Finger sweep was performed and the Coffman trocar was placed into the abdomen. The balloon was inflated. The abdomen was inflated to 15 mmHg. Next a camera was introduced into the abdomen and the abdomen was inspected. Next under direct visualization three 5-mm ports were placed one subxiphoid and 2 subcostal. Next the gallbladder was elevated and retracted toward the right shoulder. The gallbladder was thick-walled and inflamed. The peritoneum was stripped from the gallbladder. The infundibulum was located and retracted laterally. Next the triangle of Calot was dissected and the cystic duct and cystic artery were identified. Cholangiograms were performed. The Garzon catheter was used to clamp across the infundibulum and the needle was inserted into the gallbladder. Under fluoroscopy contrast was instilled into the gallbladder and the common duct, cystic duct as well as proximal hepatic ducts were identified. There was good filling of the duodenum. There were no filling defects noted in the common bile duct. The clamp was removed as well as the needle and the infundibulum was grasped once more. Three hemolock clips were placed across the cystic duct. The cystic duct was then divided leaving 2 clips on the stump. The cystic artery was clipped and divided in the same fashion. The hook cautery was then used to take the gallbladder off of the gallbladder bed. Hemostasis was obtained. Gallbladder fossa was irrigated and no active bleeding or bile leakage was noted. Next the camera switched to a 5 mm camera and introduced in the subxiphoid port. An Endopouch bag was placed through the umbilical port and the gallbladder was placed into it. The gallbladder was then removed through the umbilical incision. The camera was then reinserted through the umbilical port. The gallbladder fossa was inspected once more and noted to be hemostatic with no leaking bile. The abdomen was suctioned dry the 5 mm ports were removed under direct visualization. The umbilical port was then removed and the air was removed from the abdomen. Next using an 0 Vicryl suture the umbilical fascia was closed in a [id number] fashion. The umbilical port site was irrigated local anesthetic was administered to all the incisions. All the incisions were closed subcuticular 4-0 Monocryl sutures followed by Steri-Strips and dressings. The patient was awoken and taken to PACU in stable condition.
[2018-03-01] MEDS: Ketorolac 15 MG/ML Vial IV (19:47)
[2018-03-02 03:45] VITALS: BP 129/71; PULSE 52; RESP 16; TEMP 36.7; O2SAT 94
[2018-03-02] MEDS: HYDROcodone Bitartrate/Apap 5/325 Tablet PO ×2 (03:45→14:33)
[2018-03-02 06:33] LABS: Absolute Lymphocyte Count 1.63 X10^3/ul (0.83-4.51); Absolute Neutrophil Count 10.2 X10^3/uL (2.0-7.7); Basophil# 0.02 X10^3/uL; Basophil% 0.2 % (0-1); Eosinophil# 0.08 X10^3/uL; Eosinophils% 0.6 % (0-5); Hematocrit 37.1 % (40-54); Lymphocyte # 1.63 X10^3/ul (4.0); Lymphocyte % 12.5 % (19-41); Mean Corp Hgb Conc 32.3 g/gl (32-36); Mean Corpuscular Hgb 27.1 pg (27.0-32.0); Mean Corpuscular Volume 83.9 fL (80-94); Mean Platelet Vol. 9.7 fl (6.2-12.0); Monocyte# 1.07 X10^3/uL; Monocyte% 8.2 % (0-10); Neutrophil # 10.22 X10^3/uL (2.7-7.7); Neutrophil % 78.3 % (47-70); Platelet Count 263 K/mm3 (150-450); RBC Distribution Width SD 42.8 fl (35.1-43.9); Red Blood Count 4.42 M/mm3 (4.6-6.2); White Blood Count 13.1 K/mm3 (4.4-11.0)
[2018-03-02 06:40] LABS: POSITIVE COUNT NO; POSITIVE DIFFERENTIAL NO; POSITIVE MORPHOLOGY NO
[2018-03-02 06:47] LABS: Anion Gap 8 (5-15); BUN 9 mg/dL (7-18); BUN/Creat Ratio 12.8 RATIO (10-20); Calcium,Total 7.6 mg/dL (8.5-10.1); Chloride 108 mmol/L (98-107); EST Glomerular Filtration Rate 122 mL/min (>60); Est Glom Filt Rate - Afr Amer 148 mL/min (>60); Estimated Creatinine Clearance 109.93 ml/min; Glucose 120 mg/dL (74-106); Potassium 3.6 mmol/L (3.5-5.1); Sodium Level 143 mmol/L (136-145)
[2018-03-02] MEDS: 0.9% Normal Saline 1,000 ML 100 ML IV (06:56)
[2018-03-02 08:44] VITALS: BP 108/62; PULSE 53; RESP 16; TEMP 36.7; O2SAT 94
--- NOTE | 2018-03-02 10:41 | PCM.DC.SUM ---
Discharge Date and Diagnosis - Problem List Patient Problems: Active and Suspected Problems Acalculous cholecystitis (Acute) Adenomyoma of gallbladder (Acute) Date of Admission: 02/28/18 Date of Discharge: 03/02/18 - Primary Discharge Diagnosis Active and Suspected Problems Acalculous cholecystitis (Acute) Adenomyoma of gallbladder (Acute) Hospital Course and Treatment Operations: cholecystecomy Summary of Care Provided: The patient is a 58 year old M who presented with acute cholecystitis. Dr. Lambert performed a laparoscopic cholecystectomy with intraoperative cholangiogram on 03/01/18. Patient tolerated the procedure well. He had an uncomplicated hospitalization. Upon discharge, he notes minimal amount of incisional discomfort with movement. He denies nausea, vomiting, fever. He is tolerating a diet. Home Medications: Medications to take at Discharge Flaxseed Oil [[place]-3 Flaxseed Oil] 1,000 mg PO DAILY 02/28/18 Lactobacillus Combo No.10 [Probiotic] 1 each PO DAILY 02/28/18 Hydrocodone Bitart/Apap 5-325 [[place] 5/325] 1 tablet PO Q4H PRN PRN 5 Days #20 tablet 03/02/18 Following Prescrptions Were Given to Patient: Hydrocodone Bitart/Apap 5-325 [[place] 5/325] 1 tablet PO Q4H PRN PRN 5 Days #20 tablet PRN Reason: Severe Pain (6-10/10) Primary Care Physician: Aung Hernandez DO [Primary Care Provider] - Disposition: Home Minutes spent on discharge:: 20 Patient Condition:: Good Medical Necessity - Tobacco Use Smoking Status: Never smoker Meaningful Use Info Meaningful Use Diagnoses (Choose all that apply): None applicable Code Visit Inpatient E&M: 56593 Disch Hosp
--- NOTE | 2018-03-02 10:44 | DS.PCM_ITS ---
Discharge Date and Diagnosis - Problem List Patient Problems: Active and Suspected Problems Acalculous cholecystitis (Acute) Adenomyoma of gallbladder (Acute) Date of Admission: 02/28/18 Date of Discharge: 03/02/18 - Primary Discharge Diagnosis Active and Suspected Problems Acalculous cholecystitis (Acute) Adenomyoma of gallbladder (Acute) Hospital Course and Treatment Operations: cholecystecomy Summary of Care Provided: The patient is a 58 year old M who presented with acute cholecystitis. Dr. Lambert performed a laparoscopic cholecystectomy with intraoperative cholangiogram on 03/01/18. Patient tolerated the procedure well. He had an uncomplicated hospitalization. Upon discharge, he notes minimal amount of incisional discomfort with movement. He denies nausea, vomiting, fever. He is tolerating a diet. Home Medications: Medications to take at Discharge Flaxseed Oil [[place]-3 Flaxseed Oil] 1,000 mg PO DAILY 02/28/18 Lactobacillus Combo No.10 [Probiotic] 1 each PO DAILY 02/28/18 Hydrocodone Bitart/Apap 5-325 [[place] 5/325] 1 tablet PO Q4H PRN PRN 5 Days #20 tablet 03/02/18 Following Prescrptions Were Given to Patient: Hydrocodone Bitart/Apap 5-325 [[place] 5/325] 1 tablet PO Q4H PRN PRN 5 Days #20 tablet PRN Reason: Severe Pain (6-10/10) Primary Care Physician: Aung Hernandez DO [Primary Care Provider] - Disposition: Home Minutes spent on discharge:: 20 Patient Condition:: Good Medical Necessity - Tobacco Use Smoking Status: Never smoker Meaningful Use Info Meaningful Use Diagnoses (Choose all that apply): None applicable Code Visit Inpatient E&M: 43797 Disch Hosp
--- NOTE | 2018-03-02 10:50 | PCM.DC.GB ---
Discharge Diet: Light diet - advance as tolerated Discharge Activity: Return to Normal Activity, May Not Drive - for 2-3 days or while taking narcotic pain medicataions., - - Do not drive, work heavy equipment or sign legal documents for 24 hours. May shower in (days): 1 - with the bandage in place. Additional Activity Instructions:: Pain medication may cause nausea. You should typically eat light foods as you take your pain medications. Pain medication may also cause constipation. If this is a problem for you, please discuss with your doctor. Call your doctor if your incision/area has: Continuous Slow Oozing, Sudden Increased Bleeding, Increased Pain/ Swelling, Increased Redness, Foul Smelling Discharge, Fever of 101 or Higher Call your doctor if you observe: Fever of 101 or Higher Suture Line Care: Avoid Pulling/Pushing, Avoid Pinching/Bending Cleanse incision/area with: Soap & Water Additional Dressing/Incision Instructions:: Leave operative bandaids on for 2 days. When you remove dressing, leave Steri-Strips on until your follow-up appointment, or until the Steri-Strips fall off on their own. Allergies/Adverse Reactions: Allergies tree nut Allergy (Verified 02/28/18 22:46) Hives Medications to take at Discharge Flaxseed Oil [[place]-3 Flaxseed Oil] 1,000 mg PO DAILY 02/28/18 Lactobacillus Combo No.10 [Probiotic] 1 each PO DAILY 02/28/18 Hydrocodone Bitart/Apap 5-325 [[place] 5/325] 1 tablet PO Q4H PRN PRN 5 Days #20 tablet 03/02/18 The following prescriptions were given: Hydrocodone Bitart/Apap 5-325 [[place] 5/325] 1 tablet PO Q4H PRN PRN 5 Days #20 tablet PRN Reason: Severe Pain (6-10/10) Primary Care Physician: Aung Hernandez DO [Primary Care Provider] - Test Results: Test results from this visit will be discussed in further detail at your follow-up appointment, if applicable. Please Follow Up With: Israel Lambert MD - [phone] When: 1 week Proposed Discharge Date: 03/02/18
[2018-03-02 14:29] VITALS: BP 105/57; PULSE 58; RESP 18; TEMP 36.8; O2SAT 94
== END 2018-03-02 14:57 | disposition home or self-care (01) ==
LOC: ED 18:37 → MS3 21:47
PROVIDERS: Admitting Provider Surgery; Emergency Provider Emergency Medicine; Family Provider Family Medicine; PCP Family Medicine; Visit Provider Surgery
PROC: (CPT 47610; principal; 2018-03-01 10:45)
DX: K80.12 Calculus of gallbladder with acute and chronic cholecystitis without obstruction (principal); Z85.51 Personal history of malignant neoplasm of bladder; K21.9 Gastro-esophageal reflux disease without esophagitis; D13.5 Benign neoplasm of extrahepatic bile ducts
CPT/HCPCS: 47563; 36415; 71275; 74177; 74300; 76000; 76705; 80048; 80076; 81001; 83690; 84484; 85025; 88304; 93005; 96361; 96365; 96366; 96375; 99218; 99282; J7030; Q9967; G0378; J2405

== ENCOUNTER → 2019-06-09 15:43 | Outpatient (CLI) | payer OTHER, SELFPAY ==
--- NOTE | 2019-06-09 15:45 | CT_ITS ---
STUDY: CTA CHEST REASON FOR EXAM: Male, 59 years old. F/U LUNG NODULES. Hx of bladder cancer 2015-BCG treatments. Compare with 2018 chest CTIsovue 370 100ml RADIATION DOSAGE (If Supplied By Facility): CTDIvol = ( 15.27 ) mGy, DLP = ( 544.66 ) mGycm TECHNIQUE: The examination was performed with the intravenous administration of Isovue 370 100ml. Post-processing of the angiographic images was performed, with multiplanar reformation and 3D reconstruction. Individualized dose optimization techniques were used for this CT. COMPARISON: 03/05/2018 FINDINGS: Normal enhancement of the main pulmonary artery and right and left pulmonary arteries. Normal enhancement of the bilateral peripheral pulmonary arteries. There is no demonstrated pulmonary embolism. Normal thoracic aorta and visualized great vessels. There is no demonstrated aortic dissection. Normal heart and pericardium. There are calcified mediastinal lymph nodes. There are calcified left hilar lymph nodes. Normal visualized trachea and bronchi. The lungs are well expanded. Very small pulmonary nodules (noncalcified) are similar since the prior study. For instance, there is a 4 mm nodule along the right minor fissure on image 159, stable since the prior study. Subpleural nodule in the lingula on image 144 measuring 4 mm is also stable. No new or enlarging pulmonary nodule identified. There is a calcified granuloma in the lingula on image 157. Normal pleura. Normal chest wall structures. Normal osseous structures. Normal visualized upper abdomen. CT/CTA Chest W/WO Contrast IMPRESSION: 1. No central or segmental pulmonary embolism. 2. Stable small pulmonary nodules measuring up to 4 mm compatible with benign/postinflammatory etiology given stability more than one year. Electronically Signed: Servando Troy MD ([place]) at 13:59 EST , Service support ,
[2019-06-09 16:05] LABS: CREATININE FINGERSTICK 0.9 mg/dL (0.70-1.30); EGFR FINGERSTICK > 60.0000 mL/min (>60)
== END ==
PROVIDERS: Family Provider Family Medicine; PCP Family Medicine; Referring Provider Family Medicine; Visit Provider Family Medicine
DX: R91.8 Other nonspecific abnormal finding of lung field (principal)
CPT/HCPCS: 71275; Q9967

== ENCOUNTER 2021-08-13 09:03 | Outpatient (CLI) | payer SELFPAY ==
[2021-08-13 10:46] LABS: PSA,Total- Diagnostic 0.63 ng/mL (0.0-4.0)
== END 2021-08-13 23:59 | disposition home or self-care (01) ==
PROVIDERS: PCP Family Medicine; Referring Provider Urology; Visit Provider Urology
DX: N40.1 Benign prostatic hyperplasia with lower urinary tract symptoms (principal)
CPT/HCPCS: 36415; 84153

== ENCOUNTER 2021-08-13 16:26 | Outpatient (CLI) | payer SELFPAY ==
--- NOTE | 2021-08-13 | CYSPIN_PTH ---
PATIENT: FRANCISCO YEE LOC: [facility] U#:[id number] AGE/SX: 61/M ROOM: RE08/13/[address]: Dr. Rocael Eng MD : 1960 BED: DIS: 08/13/2021 SPEC #: [id number] RECD: 08/14/21 09:24 STATUS: MADDI RESyed #: [id number] MOSHE: 08/13/21 00:[address]: Rocael Eng DEPT: CYTOLOGY RECD BY: Sebastian Sanchez ENTERED: 08/14/21 09:25 SP TYPE: CYSPIN FL OTHR DR: Dr. Aung Hernandez, DO Tissues: Urine Procedures: Pap Stain (control) Special Stain Group II Cytospin Fluid HEADER OPERATION: Not noted PRE-OP DIAGNOSIS: Malignant neoplasm of bladder TISSUE SUBMITTED: Urine for cytology DIAGNOSIS CYTOLOGY Urine for cytology (cytospin): Rare atypical urothelial cells of uncertain significance. See comment. AM:leidy 08/14/2021 COMMENT The specimen is markedly hypocellular. Clinical correlation is suggested. Case has been reviewed in consultation with Dr. Quintero who concurs with the above diagnosis. IDC:SJ CYTOLOGY STUDY Slides are reviewed. CYTOLOGY GROSS Received is 60 ml of orange cloudy fluid labeled with the patient's name and and designated per the requisition as urine. Submitted for cytology preparation. / leidy 08/13/2021 TC:1 CPT: 02431
[2021-08-13 17:26] LABS: Cytology, Body Fluid / CSF SEE PATHOLOGY REPORT
== END 2021-08-13 23:59 | disposition home or self-care (01) ==
LOC: LABSPEC 16:27
PROVIDERS: PCP Family Medicine; Referring Provider Urology; Visit Provider Urology
DX: Z85.51 Personal history of malignant neoplasm of bladder (principal)
CPT/HCPCS: 88108; 88313

== ENCOUNTER → 2022-08-14 | Outpatient (CLI) | payer SELFPAY ==
--- NOTE | 2022-08-14 | CYSPIN_PTH ---
PATIENT: FRANCISCO YEE LOC: [facility] U#:[id number] AGE/SX: 62/M ROOM: RE08/14/[address]: Dr. Rocael Eng MD : 1960 BED: DIS: 08/14/2022 SPEC #: [id number] RECD: 08/15/22 09:35 STATUS: MADDI JONAH #: [id number] MOSHE: 08/14/22 00:[address]: Rocael Eng DEPT: CYTOLOGY RECD BY: Sebastian Sanchez ENTERED: 08/15/22 09:35 SP TYPE: CYSPIN FL OTHR DR: Dr. Aung Hernandez, DO Tissues: Urine Procedures: Pap Stain (control) Special Stain Group II Cytospin Fluid HEADER OPERATION: Not noted PRE-OP DIAGNOSIS: Malignant neoplasm of bladder TISSUE SUBMITTED: Urine for cytology DIAGNOSIS CYTOLOGY Urine for cytology (cytospin): Negative for high-grade urothelial carcinoma (NHGUC), Aleida System Category II. See comment. SJ:leidy 08/15/2022 COMMENT Clinical correlation and appropriate follow up are necessary. The Aleida System for urine cytology diagnostic categorization was used in the evaluation of this case. Please make reference to previous specimen ([id number]) urine for cytology with diagnosis of ?rare atypical urothelial cells of undetermined significance.? CYTOLOGY STUDY Slides are reviewed. CYTOLOGY GROSS Received is 40 ml of yellow cloudy fluid labeled with the patient's name and and designated per the requisition as urine. Submitted for cytology preparation. / leidy 08/14/2022 TC:5 CPT: 14785
[2022-08-14 17:24] LABS: PSA,Total - Annual Screen 0.58 ng/mL (0.00-4.00)
[2022-08-14 17:40] LABS: Cytology, Body Fluid / CSF SEE PATHOLOGY REPORT
== END | disposition home or self-care (01) ==
PROVIDERS: PCP Family Medicine; Visit Provider Urology
DX: C67.9 Malignant neoplasm of bladder, unspecified (principal); Z12.5 Encounter for screening for malignant neoplasm of prostate
CPT/HCPCS: 36415; 84153; 88108; 88313; G0103

== ENCOUNTER 2023-12-06 22:53 | Emergency (ER) | payer SELFPAY ==
[2023-12-06 22:54] VITALS: BP 161/78; PULSE 85; RESP 19; TEMP 36.6; O2SAT 95; BMI 28.3
[2023-12-06] MEDS: MethylPREDNISolone 125 MG/2 ML Vial IV (23:12)
[2023-12-06] MEDS: Famotidine 200 MG/20 ML MDV 20 MG in 0.9% Normal Saline (Pres. free 8 ML 300 MG IV (23:13)
--- NOTE | 2023-12-07 00:27 | EDS_ITS ---
HPI History of Present Illness Chief Complaint: Allergic Reaction Informant: patient and spouse/S.O. Narrative Narrative: Patient is a 63-year-old male with past medical history of of a calculus cholecystitis and allergy to tree nuts. He states he was at [employer] this evening and after [employer] they did their potluck dinner. He states he had a sandwich and approximate 20 minutes later started feeling like he was having some thickness in his throat and that his palms are itchy. With concern that he may have been exposed to tree nuts he presents to the hospital for evaluation [facility] Medical History (Updated 12/07/23 @ 01:[address] Gerald Valiente, DO) Adenomyoma of gallbladder Acalculous cholecystitis Home Medications ?Medication ?Instructions ?Recorded ?Last Taken ?Type flaxseed oil 1,000 mg capsule 1,000 mg PO DAILY supplement 02/28/18 02/28/18 History lactobacillus comb no.10 20 1 ea PO DAILY probiotic 02/28/18 02/28/18 History billion cell capsule lisinopril 20 mg tablet 20 mg PO DAILY 12/06/23 Unknown History metformin 500 mg tablet,extended 500 mg PO DAILY 12/06/23 Unknown History release 24 hr rosuvastatin 10 mg tablet 10 mg PO DAILY 12/06/23 Unknown History prednisone 20 mg tablet 40 mg (2 x 20 mg) PO DAILY 5 days 12/07/23 Unknown Rx #10 tabs Allergy/AdvReac Type Severity Reaction Status Date / Time tree nut Allergy Hives Verified 03/08/18 09:14 Surgical History (Updated 03/08/18 @ 09:14 by Iram Noguera) S/P laparoscopic cholecystectomy (~03/01/18) Social History (Updated 03/08/18 @ 09:[address] Israel Lambert MD) Smoking Status: Never smoker ROS ROS ED Constitutional Constitutional ED: Denies chills or fever(s) ENT ENT ED: Denies sore throat Cardiovascular Cardiovascular: Denies chest pain Respiratory/Chest Respiratory/Chest: Denies cough or dyspnea Gastrointestinal Gastrointestinal: Denies abdominal pain, diarrhea, nausea or vomiting Genitourinary Genitourinary ED: Denies dysuria Musculoskeletal Musculoskeletal: Denies myalgias Integumentary Denies rash Neurologic Neurologic: Denies headache(s) Hematologic/Lymphatic Hematologic/Lymphatic: Denies easy bleeding or easy bruising Allergic/Immunologic Allergic/Immunologic ED: Reports mouth swelling; Denies tongue swelling or urticaria EXAM Physical Exam Const Vital Signs: 12/06/23 22:54 12/07/23 00:34 Temperature 97.9 F 97.9 F Temperature Source Temporal Pulse Rate 85 69 Respiratory Rate 19 H 18 Blood Pressure 161/78 H 136/68 H Blood Pressure Mean 105 90 Pulse Ox 95 97 Oxygen Delivery Method Room Air Positive well nourished and well developed General Appearance ED: well developed; Negative for pallor HEENT Reports moist mucous membranes HEENT Narrative: There is slight edema to the lower external lip. Otherwise no tongue swelling no oral lesions no airway edema or compromise No change in voice no difficulty with secretions no trismus Eyes PERRL and EOMs intact bilaterally Neck supple Neck Narrative: No deviation of the trachea No crepitance palpated Resp normal respiratory effort and clear to auscultation bilaterally Resp Narrative: No nasal flaring retractions tachypnea or accessory muscle use Cardio regular rate and regular rhythm Extremity normal to inspection Neuro oriented x3, CN's II-XII intact bilaterally and no sensory deficits noted Sensorium / Orientation: alert Motor Exam: strength 5/5 throughout Psych mental status grossly normal Skin no rashes or lesions noted, no wounds and skin turgor normal General Skin Exam: Negative for jaundice or pallor MDM MDM MDM Narrative Medical decision making narrative: Patient arrived to the ER hypertensive otherwise with stable vitals. He reported an allergy to tree nuts and believes he may have eaten something with it on there as he has a thickening sensation in his throat. He took Benadryl prior to arrival but as he reported itching to his palms and this potential allergy exposure and does have mild swelling of his lip he was given Pepcid and Solu-Medrol. As he is not having signs of respiratory distress or airway compromise/anaphylaxis I felt no need for IM epinephrine. Patient was watched in the ER for approximate hour and 45 minutes. He had no worsening of the lower lip swelling and overall reported feeling better after receiving the Solu-Medrol and Pepcid. Therefore this time as patient has no signs of respiratory distress no signs of airway compromise and overall is feeling better after medication he is otherwise safe for discharge. History & Record Review Discussion w/independent historian: Patient and Significant other Discharge Plan Triage Chief Complaint: Allergic Reaction ED Provider: Gerald Valiente Dx/Rx/DC Orders Clinical Impression: Allergic reaction, Hypertension Instructions: ED General Allergic Reactions Prescriptions: New prednisone 20 mg tablet 40 mg PO DAILY 5 Days Qty: 10 0RF No Action flaxseed oil 1,000 MG capsule 1,000 mg PO DAILY lactobacillus comb no.10 1 EACH capsule 1 ea PO DAILY lisinopril 20 mg tablet 20 mg PO DAILY metformin 500 mg tablet extended release 24 hr 500 mg PO DAILY rosuvastatin 10 mg tablet 10 mg PO DAILY Primary Care Provider: Raffi Sargent Referrals: Raffi Sargent PAParulC [Primary Care Provider] - Activity Restrictions/Additional Instructions: Continue the prednisone once a day as directed to help prevent any further inflammation or allergic reaction. You may use Benadryl up to 3 times a day on top of this if needed. If you have any further concerns or worsening of symptoms please return for repeat evaluation Print Language: Gibraltarian Disposition Disposition: Home, Self Care Discharge Date/Time: 12/07/23 00:56
[2023-12-07 00:34] VITALS: BP 136/68; PULSE 69; RESP 18; TEMP 36.6; O2SAT 97
== END 2023-12-07 00:56 | disposition home or self-care (01) ==
PROVIDERS: Emergency Provider Emergency Medicine; PCP Physician Assistant; Visit Provider Emergency Medicine
DX: T78.40XA Allergy, unspecified, initial encounter (principal); I10 Essential (primary) hypertension; Z79.84 Long term (current) use of oral hypoglycemic drugs; Z79.899 Other long term (current) drug therapy; X58.XXXA Exposure to other specified factors, initial encounter
CPT/HCPCS: 96374; 99283; A4216; J3490